=== PATIENT | male | born 2000 | race Caucasian/White ===

== ENCOUNTER 2021-06-11 23:37 | Emergency (ER) | payer OTHER ==
[2021-06-12 01:47] LABS: HCT 41.9 % (42.0-52.0); HGB 14.7 g/dl (13.2-18.0); MCH 30.4 pg (25.0-31.0); MCHC 35.1 g/dL (32.0-36.0); MCV 86.7 fL (78.0-100.0); MPV 10.4 fL (6.0-9.5); RBC 4.83 M/uL (4.70-6.00); WBC 13.4 K/uL (4.0-10.5)
[2021-06-12 02:04] LABS: POTASSIUM 4.2 mmol/L (3.5-5.1)
== END 2021-06-12 03:10 | disposition home or self-care (01) ==
LOC: FER 23:37
PROVIDERS: Emergency Medicine
DX: J06.9 Acute upper respiratory infection, unspecified (principal); Z20.822 Contact with and (suspected) exposure to COVID-19
CPT/HCPCS: 36415; 71045; 80048; J7030; U0002